=== PATIENT | female | born 1990 | race Caucasian/White ===

== ENCOUNTER 2018-01-22 21:22 | Emergency (ER) | payer BC ==
[2018-01-22] MEDS ORDERED: MAGNE/ALUM HYDROXD 30 ML UCUP ONE (22:02)
[2018-01-22] MEDS ORDERED: LIDOCAINE VISCOUS 2% SOLN 15 ML UDC ONE (22:03)
[2018-01-22 22:08] LABS: Urine Blood NEGATIVE (NEG); Urine Glucose NEGATIVE (NEG); Urine Protein NEGATIVE (NEG); Urine Specific Gravity >1.030 (1.005-1.030)
[2018-01-22 22:21] LABS: Absolute Lymphocytes (CBC) 2.6 K/uL (0.7-4.9); Absolute Monocytes 0.6 K/uL (0.1-1.3); Absolute Neutrophil 4.2 K/uL (1.8-8.0); Basophils % 1.2 % (0-1.3); Eosinophils % 2.6 % (0-4.4); Hematocrit 36.7 % (36.0-45.0); Lymphocytes % 33.6 % (15.3-44.8); MCH 30.5 pg (27.0-35.0); MCV 88.7 fL (80-100); MPV 7.9 fL (7.6-11.3); Monocytes % 8.3 % (3.3-12.3); RBC Red Blood Cell Count 4.14 M/uL (3.86-4.86)
[2018-01-22 23:05] LABS: ALT/SGPT 22 U/L (12-78); AST/SGOT 17 U/L (15-37); Albumin 3.6 g/dL (3.4-5.0); Alkaline Phosphatase 84 U/L (45-117); BUN Blood Urea Nitrogen 18 mg/dL (7-18); Bicarbonate 26 mmol/L (21-32); Bilirubin Direct < 0.1 mg/dL (0-0.2); Bilirubin Total 0.2 mg/dL (0.2-1.0); Glucose Level 96 mg/dL (74-106); Lipase 161 U/L (73-393); Potassium 3.6 mmol/L (3.5-5.1); Protein, Total 6.9 g/dL (6.4-8.2); Sodium Level 142 mmol/L (136-145)
[2018-01-22 23:18] LABS: Urine Bacteria <20 /HPF (<20); Urine Culture Reflex Order NOT NEEDED; Urine RBC <5 /HPF (NONE SEEN)
--- NOTE | 2018-01-22 23:57 | EDPHYS ---
Physician Documentation [facility] Name: Nicolle Nelson Age: 27 yrs Sex: Female : 1990 Arrival Date: 01/22/2018 Time: 21:23 Bed 28 Private MD: ED Physician Robert Adair HPI: 01/22 23:43 This 27 yrs old Female presents to ER via Ambulatory with complaints of gs Abdominal Pain, Back Pain. 23:43 The patient presents with pain that is acute. gs 23:43 The patient presents with abdominal pain in the epigastric area. Onset: The gs symptoms/episode began/occurred 2 day(s) ago. The symptoms radiate to right upper quadrant. Associated signs and symptoms: Pertinent positives: nausea. The symptoms are described as burning. Modifying factors: The symptoms are alleviated by nothing, the symptoms are aggravated by food. Severity of pain: At its worst the pain was moderate in the emergency department the pain has improved moderately. The patient has experienced similar episodes in the past, a few times. 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 - Social history:: Smoking status: Patient uses tobacco products, denies chronic smoking, but will smoke occasionally. - Ebola Screening: : Patient negative for fever greater than or equal to 101.5 degrees Fahrenheit, and additional compatible Ebola Virus Disease symptoms Patient denies exposure to infectious person Patient denies travel to an Ebola-affected area in the 21 days before illness onset No symptoms or risks identified at this time. ROS: 23:43 All other systems are negative. gs Exam: 23:43 Head/Face: Normocephalic, atraumatic. Eyes: Pupils equal round and reactive to light, gs extra-ocular motions intact. Lids and lashes normal. Conjunctiva and sclera are non-icteric and not injected. Cornea within normal limits. Periorbital areas with no swelling, redness, or edema. ENT: Nares patent. No nasal discharge, no septal abnormalities noted. Tympanic membranes are normal and external auditory canals are clear. Oropharynx with no redness, swelling, or masses, exudates, or evidence of obstruction, uvula midline. Mucous membranes moist. Neck: Trachea midline, no thyromegaly or masses palpated, and no cervical lymphadenopathy. Supple, full range of motion without nuchal rigidity, or vertebral point tenderness. No Meningismus. Chest/axilla: Normal chest wall appearance and motion. Nontender with no deformity. No lesions are appreciated. Cardiovascular: Regular rate and rhythm with a normal S1 and S2. No gallops, murmurs, or rubs. Normal PMI, no JVD. No pulse deficits. Respiratory: Lungs have equal breath sounds bilaterally, clear to auscultation and percussion. No rales, rhonchi or wheezes noted. No increased work of breathing, no retractions or nasal flaring. Back: No spinal tenderness. No costovertebral tenderness. Full range of motion. Skin: Warm, dry with normal turgor. Normal color with no rashes, no lesions, and no evidence of cellulitis. MS/ Extremity: Pulses equal, no cyanosis. Neurovascular intact. Full, normal range of motion. Neuro: Awake and alert, GCS 15, oriented to person, place, time, and situation. Cranial nerves II-XII grossly intact. Motor strength 5/5 in all extremities. Sensory grossly intact. Cerebellar exam normal. Normal gait. 23:43 Constitutional: The patient appears in no acute distress, alert, awake. 23:43 Abdomen/GI: Palpation: mild abdominal tenderness, in the epigastric area, rebound tenderness, is not appreciated, voluntary guarding, is not appreciated. Vital Signs: 21:32 BP 113 / 74; Pulse 88; Resp 17; Temp 98.3; Pulse Ox 98% on R/A; Weight 53.52 kg; Height aj 5 ft. 5 in. (165.10 cm); 22:30 BP 125 / 78; Pulse 78; Resp 18; Pulse Ox 100% ; mg2 23:30 BP 122 / 74; Pulse 78; Resp 18; Pulse Ox 100% on R/A; mg2 01/23 00:05 BP 118 / 78; Pulse 80; Resp 18; Pulse Ox 100% on R/A; mg2 01/22 21:32 Body Mass Index 19.64 (53.52 kg, 165.10 cm) MDM: 01/22 21:51 Patient medically screened. gs 23:43 Differential diagnosis: gastroesophageal reflux disease, non-specific abd pain, gs pancreatitis. Data reviewed: vital signs, nurses notes. Counseling: I had a detailed discussion with the patient and/or guardian regarding: the historical points, exam findings, and any diagnostic results supporting the discharge/admit diagnosis, lab results, the need for outpatient follow up. Response to treatment: the patient's symptoms have markedly improved after treatment, and as a result, I will discharge patient. 01/22 21:52 Order name: Basic Metabolic Panel; Complete Time: 23:42 01/22 21:52 Order name: CBC with Diff; Complete Time: 22:34 gs 01/22 21:52 Order name: Hepatic Function; Complete Time: 23:42 01/22 21:52 Order name: Lipase; Complete Time: 23:42 01/22 21:52 Order name: Urine Microscopic Only; Complete Time: 23:42 01/22 21:52 Order name: Urine Dipstick--Ancillary (enter results); Complete Time: 22:34 mw2 01/22 21:52 Order name: IV Saline Lock; Complete Time: 22:09 01/22 21:52 Order name: Labs collected and sent; Complete Time: 22:09 01/22 21:52 Order name: Urine Dipstick-Ancillary (obtain specimen); Complete Time: 22:09 01/22 21:52 Order name: Urine --Ancillary (enter results); Complete Time: 22:34 mw2 Administered Medications: 22:09 Drug: GI Cocktail without - (Maalox Suspension 30 ml, Lidocaine Liquid 2 % 15 mg2 ml) Route: PO; 23:30 Follow up: Response: No adverse reaction; Marked relief of symptoms mg2 Disposition: 01/22/18 23:57 Discharged to Home. Impression: Epigastric pain. - Condition is Stable. - Discharge Instructions: Abdominal Pain, Adult. - Prescriptions for omeprazole 20 mg Oral capsule,delayed release(DR/EC) - take 1 capsule by ORAL route once daily; 30 capsule. - Medication Reconciliation Form, Thank You Letter, Antibiotic Education, Prescription Opioid Use form. - Follow up: Private Physician; When: 2 - 3 days; Reason: Re-evaluation by your physician. Follow up: Alexi Barraza MD; When: 2 - 3 days; Reason: Re-evaluation by your physician. Signatures: Dispatcher [employer] Zandra Aparicio RN RN aj Robert Adair MD MD gs Homar Mack RN RN mg2 Corrections: (The following items were deleted from the chart) 01/23 00:15 01/22 23:57 01/22/2018 23:57 Discharged to Home. Impression: Epigastric pain. Condition mg2 is Stable. Forms are Medication Reconciliation Form, Thank You Letter, Antibiotic Education, Prescription Opioid Use. Follow up: Private Physician; When: 2 - 3 days; Reason: Re-evaluation by your physician. Follow up: Alexi Barraza; When: 2 - 3 days; Reason: Re-evaluation by your physician. gs
--- NOTE | 2018-01-22 23:57 | ER ---
Nurse's Notes [facility] Name: Nicolle Nelson Age: 27 yrs Sex: Female : 1990 Arrival Date: 01/22/2018 Time: 21:23 Bed 28 Private MD: Diagnosis: Epigastric pain Presentation: 01/22 21:31 Presenting complaint: Patient states: Epigastric pain for 2 days with nausea. Worse aj after eating. Transition of care: patient was not received from another setting of care. Onset of symptoms was January 20, 2018. Risk Assessment: Do you want to hurt yourself or someone else? Patient reports no desire to harm self or others. Initial Sepsis Screen: Does the patient meet any 2 criteria? No. Patient's initial sepsis screen is negative. Does the patient have a suspected source of infection? No. Patient's initial sepsis screen is negative. Care prior to arrival: None. 21:31 Method Of Arrival: Ambulatory aj 21:31 Acuity: PATSY 3 aj Triage Assessment: 21:32 General: Appears in no apparent distress. uncomfortable, Behavior is calm, cooperative, aj appropriate for age. Pain: Complains of pain in epigastric area and right upper quadrant. Neuro: Level of Consciousness is awake, alert, obeys commands, Oriented to person, place, time, situation, Appropriate for age. Respiratory: Airway is patent Respiratory effort is even, unlabored, Respiratory pattern is regular, symmetrical. GI: Reports upper abdominal pain, epigastric pain, nausea. Derm: Skin is intact, is healthy with good turgor, Skin is pink, warm \T\ dry. normal. 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 - Social history:: Smoking status: Patient uses tobacco products, denies chronic smoking, but will smoke occasionally. - Ebola Screening: : Patient negative for fever greater than or equal to 101.5 degrees Fahrenheit, and additional compatible Ebola Virus Disease symptoms Patient denies exposure to infectious person Patient denies travel to an Ebola-affected area in the 21 days before illness onset No symptoms or risks identified at this time. Screenin:37 Abuse screen: Denies threats or abuse. Denies injuries from another. Nutritional mg2 screening: No deficits noted. Tuberculosis screening: No symptoms or risk factors identified. Fall Risk None identified. Assessment: 21:41 General: Appears in no apparent distress. uncomfortable, slender, well groomed, well tl3 developed, well nourished, Behavior is calm, cooperative, appropriate for age. Pain: Complains of pain in epigastric area Pain radiates to right mid back. Neuro: Level of Consciousness is awake, alert, obeys commands, Oriented to person, place, time, situation, Appropriate for age. Cardiovascular: Patient's skin is warm and dry. Respiratory: Airway is patent Respiratory effort is even, unlabored, Respiratory pattern is regular, symmetrical. GI: Abdomen is flat, Bowel sounds present X 4 quads. Abd is soft. GI: Reports lower abdominal pain, since for the last two to three days pt has had epigastric pain, now it is starting to radiate to the right side of her back. No vomiting, diarrhea or fever. : No signs and/or symptoms were reported regarding the genitourinary system. Urine is clear. EENT: No signs and/or symptoms were reported regarding the EENT system. Derm: No signs and/or symptoms reported regarding the dermatologic system. Musculoskeletal: No signs and/or symptoms reported regarding the musculoskeletal system. 23:21 Reassessment: Patient appears in no apparent distress at this time. Patient and/or mg2 family updated on plan of care and expected duration. Pain level reassessed. Patient is alert, oriented x 3, equal unlabored respirations, skin warm/dry/pink. 01/23 00:05 Reassessment: Patient appears in no apparent distress at this time. Patient and/or mg2 family updated on plan of care and expected duration. Pain level reassessed. Patient is alert, oriented x 3, equal unlabored respirations, skin warm/dry/pink. Vital Signs: 01/22 21:32 BP 113 / 74; Pulse 88; Resp 17; Temp 98.3; Pulse Ox 98% on R/A; Weight 53.52 kg; Height aj 5 ft. 5 in. (165.10 cm); 22:30 BP 125 / 78; Pulse 78; Resp 18; Pulse Ox 100% ; mg2 23:30 BP 122 / 74; Pulse 78; Resp 18; Pulse Ox 100% on R/A; mg2 01/23 00:05 BP 118 / 78; Pulse 80; Resp 18; Pulse Ox 100% on R/A; mg2 01/22 21:32 Body Mass Index 19.64 (53.52 kg, 165.10 cm) ED Course: 01/22 21:23 Patient arrived in ED. am2 21:32 Triage completed. aj 21:32 Arm band placed on left wrist. Patient placed in an exam room. aj 21:36 Robert Adair MD is Attending Physician. 21:37 Homar Mack, RN is Primary Nurse. mg2 21:38 No provider procedures requiring assistance completed. mg2 21:41 Patient has correct armband on for positive identification. tl3 22:09 Inserted saline lock: 20 gauge in left antecubital area, using aseptic technique. Blood mg2 collected. 23:56 Alexi Barraza MD is Referral Physician. 01/23 00:10 IV discontinued, intact, bleeding controlled, No redness/swelling at site. Pressure mg2 dressing applied. Administered Medications: 01/22 22:09 Drug: GI Cocktail without - (Maalox Suspension 30 ml, Lidocaine Liquid 2 % 15 mg2 ml) Route: PO; 23:30 Follow up: Response: No adverse reaction; Marked relief of symptoms mg2 Outcome: 23:57 Discharge ordered by . 01/23 00:10 Discharged to home ambulatory, with family. mg2 Discharge instructions given to patient, family, Instructed on discharge instructions, follow up and referral plans. medication usage, Demonstrated understanding of instructions, follow-up care, medications. 00:10 Condition: stable mg2 00:15 Patient left the ED. mg2 Signatures: Zandra Peralta RN RN Zandra Kirk am2 Robert Adair MD MD Roxana Parson RN RN tl3 Homar Mack, SHU [place] mg2 Corrections: (The following items were deleted from the chart) 02:33 02:32 Condition: stable mg2 mg2
== END 2018-01-23 00:15 | disposition home or self-care (01) ==
LOC: ER 21:22
DX: R10.13 Epigastric pain (principal); Z72.0 Tobacco use
CPT/HCPCS: 36415; 80048; 80076; 81003; 81015; 81025; 83690; 85025; 99284

== ENCOUNTER 2018-02-01 17:55 | Emergency (ER) | payer BC ==
--- NOTE | 2018-02-01 19:31 | RAD REPORT ---
EXAM DESCRIPTION: US - BREAST/AXILLA, LIMITED - 02/01/2018 7:15 pm CLINICAL HISTORY: right anterior/lateral breast;Pain COMPARISON: No comparisons FINDINGS: A limited/targeted right breast sonogram was requested to the area of palpable abnormality . No mass, cyst or other abnormality is seen. IMPRESSION: Negative limited study.
--- NOTE | 2018-02-01 19:50 | ER ---
Nurse's Notes [facility] Name: Nicolle Nelson Age: 27 yrs Sex: Female : 1990 Arrival Date: 02/01/2018 Time: 17:56 Bed 7 Private MD: Diagnosis: Right Breast Pain Presentation: 02/01 18:00 Presenting complaint: Patient states: "I trying to get an X-Ray or something on my boob aj1 because its been hurting really bad for 2 weeks. Its bigger and its harder, it's abnormal." Reports pain to right breast. Denies redness, denies warmth to right breast. Denies fever. Denies drainage from breast. Transition of care: patient was not received from another setting of care. Onset of symptoms was January 2018. Risk Assessment: Do you want to hurt yourself or someone else? Patient reports no desire to harm self or others. Initial Sepsis Screen: Does the patient meet any 2 criteria? No. Patient's initial sepsis screen is negative. Does the patient have a suspected source of infection? No. Patient's initial sepsis screen is negative. Care prior to arrival: None. 18:00 Method Of Arrival: Ambulatory aj1 18:00 Acuity: PATSY 4 aj1 Triage Assessment: 18:03 Pain: Complains of pain in right breast Pain currently is 10 out of 10 on a pain scale. aj1 Neuro: Level of Consciousness is awake, alert, obeys commands. Cardiovascular: Patient's skin is warm and dry. Respiratory: Airway is patent Respiratory effort is even, unlabored, Respiratory pattern is regular, symmetrical. 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 - Social history:: Smoking status: Patient uses tobacco products, denies chronic smoking, but will smoke occasionally. - Ebola Screening: : Patient denies travel to an Ebola-affected area in the 21 days before illness onset. Screenin:21 Abuse screen: Denies threats or abuse. Denies injuries from another. Nutritional ao screening: No deficits noted. Tuberculosis screening: No symptoms or risk factors identified. Fall Risk None identified. Assessment: 19:19 General: Appears in no apparent distress. comfortable, Behavior is calm, cooperative, ao appropriate for age. Pain: Complains of pain in right breast. Neuro: Level of Consciousness is awake, alert, obeys commands, Oriented to person, place, time, situation, Appropriate for age Moves all extremities. Full function Speech is normal, Facial symmetry appears normal, Pupils are PERRLA. Cardiovascular: Heart tones S1 S2 Capillary refill < 3 seconds is sluggish Patient's skin is warm and dry. Respiratory: Airway is patent Respiratory effort is even, unlabored, Respiratory pattern is regular, symmetrical. GI: Abdomen is flat, non-distended. : No signs and/or symptoms were reported regarding the genitourinary system. EENT: No signs and/or symptoms were reported regarding the EENT system. Derm: Skin is intact, Skin is pink, warm \\T\\ dry. normal, Skin temperature is warm. Musculoskeletal: No signs and/or symptoms reported regarding the musculoskeletal system. 20:00 Reassessment: Patient appears in no apparent distress at this time. Patient is alert, aa1 oriented x 3, equal unlabored respirations, skin warm/dry/pink. Discussed d/c \\T\\ f/u instructions with pt; denies questions or concerns at this time. 20:01 Reassessment: DC instructions given to patient. patient agree to follow up with PCP. ao Vital Signs: 18:03 BP 129 / 89; Pulse 88; Resp 16; Temp 97.4; Pulse Ox 97% on R/A; Weight 53.07 kg (R); aj1 Height 5 ft. 6 in. (167.64 cm) (R); Pain 10/10; 19:19 BP 97 / 84; Pulse 75; Resp 16; Pulse Ox 98% on R/A; Pain 8/10; ao 18:03 Body Mass Index 18.88 (53.07 kg, 167.64 cm) aj1 ED Course: 17:56 Patient arrived in ED. as 18:03 Triage completed. aj1 18:03 Arm band placed on Patient placed in an exam room. aj1 18:08 Jonatan Tejeda PA is PHCP. jr8 18:08 Andreas Hickman MD is Attending Physician. jr8 18:25 Served as social service agency director during breast exam. aj1 19:03 Erasto Andrea, RN is Primary Nurse. ao 19:15 BREAST/AXILLA, LIMITED In Process Unspecified. EDMS 19:22 Patient has correct armband on for positive identification. Pulse ox on. NIBP on. ao 20:01 Patient did not have IV access during this emergency room visit. ao Administered Medications: No medications were administered Outcome: 19:50 Discharge ordered by . nura 20:00 Discharged to home ambulatory. ao 20:00 Condition: stable 20:00 Discharge instructions given to patient, Instructed on discharge instructions, follow up and referral plans. Demonstrated understanding of instructions, follow-up care, medications, Prescriptions given X 1. 20:01 Patient left the ED. ao Signatures: Dispatcher [employer] EDMS Alma Naranjo RN RN aj1 Yoly Schilling RN RN aa1 Olivia Richardson Josh, PA PA jr8 Erasto Andrea, RN RN ao
--- NOTE | 2018-02-01 19:50 | EDPHYS ---
Physician Documentation [facility] Unit Name: Nicolle Nelson Age: 27 yrs Sex: Female : 1990 Arrival Date: 02/01/2018 Time: 17:56 Bed 7 Private MD: ED Physician Andreas Hickman HPI: 02/01 19:46 This 27 yrs old Female presents to ER via Ambulatory with complaints of jr8 Breast Lump. 19:46 Onset: The symptoms/episode began/occurred gradually, 2 day(s) ago. Associated signs jr8 and symptoms: The patient has no apparent associated signs or symptoms. Modifying factors: The patient symptoms are alleviated by nothing, the patient symptoms are aggravated by nothing. The patient has not experienced similar symptoms in the past. The patient has not recently seen a physician. Patient stated that she has had right breast tenderness and fullness when she looks at it. Pain getting worse . 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 - Social history:: Smoking status: Patient uses tobacco products, denies chronic smoking, but will smoke occasionally. - Ebola Screening: : Patient denies travel to an Ebola-affected area in the 21 days before illness onset. ROS: 19:46 Eyes: Negative for injury, pain, redness, and discharge, ENT: Negative for injury, jr8 pain, and discharge, Neck: Negative for injury, pain, and swelling, Cardiovascular: Negative for chest pain, palpitations, and edema, Respiratory: Negative for shortness of breath, cough, wheezing, and pleuritic chest pain, Abdomen/GI: Negative for abdominal pain, nausea, vomiting, diarrhea, and constipation, Back: Negative for injury and pain, MS/Extremity: Negative for injury and deformity, Skin: Negative for injury, rash, and discoloration, Neuro: Negative for headache, weakness, numbness, tingling, and seizure. Exam: 19:46 Eyes: Pupils equal round and reactive to light, extra-ocular motions intact. Lids and jr8 lashes normal. Conjunctiva and sclera are non-icteric and not injected. Cornea within normal limits. Periorbital areas with no swelling, redness, or edema. ENT: Nares patent. No nasal discharge, no septal abnormalities noted. Tympanic membranes are normal and external auditory canals are clear. Oropharynx with no redness, swelling, or masses, exudates, or evidence of obstruction, uvula midline. Mucous membranes moist. Neck: Trachea midline, no thyromegaly or masses palpated, and no cervical lymphadenopathy. Supple, full range of motion without nuchal rigidity, or vertebral point tenderness. No Meningismus. Cardiovascular: Regular rate and rhythm with a normal S1 and S2. No gallops, murmurs, or rubs. Normal PMI, no JVD. No pulse deficits. Respiratory: Lungs have equal breath sounds bilaterally, clear to auscultation and percussion. No rales, rhonchi or wheezes noted. No increased work of breathing, no retractions or nasal flaring. Abdomen/GI: Soft, non-tender, with normal bowel sounds. No distension or tympany. No guarding or rebound. No evidence of tenderness throughout. Skin: Warm, dry with normal turgor. Normal color with no rashes, no lesions, and no evidence of cellulitis. MS/ Extremity: Pulses equal, no cyanosis. Neurovascular intact. Full, normal range of motion. Neuro: Awake and alert, GCS 15, oriented to person, place, time, and situation. 19:46 Chest/axilla: Inspection: normal, Palpation: is normal, Axilla: are normal, no abscess, no cellulitis, no mass, no palpable nodes, no rash, Breasts: tenderness, that is mild of the right breast, anterolateral aspect, Lymph nodes: lymphadenopathy is not appreciated. Vital Signs: 18:03 BP 129 / 89; Pulse 88; Resp 16; Temp 97.4; Pulse Ox 97% on R/A; Weight 53.07 kg (R); aj1 Height 5 ft. 6 in. (167.64 cm) (R); Pain 10/10; 19:19 BP 97 / 84; Pulse 75; Resp 16; Pulse Ox 98% on R/A; Pain 8/10; ao 18:03 Body Mass Index 18.88 (53.07 kg, 167.64 cm) aj1 MDM: 18:08 Patient medically screened. jr8 19:35 Data reviewed: vital signs, nurses notes, radiologic studies, ultrasound, and as a jr8 result, I will discharge patient. Data interpreted: Pulse oximetry: on room air is 98 %. Interpretation: normal. Counseling: I had a detailed discussion with the patient and/or guardian regarding: the historical points, exam findings, and any diagnostic results supporting the discharge/admit diagnosis, radiology results, the need for outpatient follow up, an OB/Gyne specialist, to return to the emergency department if symptoms worsen or persist or if there are any questions or concerns that arise at home. 19:35 ED course: Anterolateral fullness noted to right breast without any other palpable or jr8 visual abnormality. US without acute findings. Will start on antiinflammatory and have her see OB. 02/01 18:31 Order name: BREAST/AXILLA, LIMITED; Complete Time: 19:34 EDMS Administered Medications: No medications were administered Disposition: 02/02 02:02 Co-signature as Attending Physician, Andreas Hickman MD Available for consultation at ps1 all times. . Disposition: 02/01/18 19:50 Discharged to Home. Impression: Right Breast Pain. - Condition is Stable. - Discharge Instructions: Breast Tenderness, Breast Scan, Breast Ultrasound. - Prescriptions for Ibuprofen 800 mg Oral Tablet - take 1 tablet by ORAL route every 8 hours As needed take with food; 30 tablet. - Medication Reconciliation Form, Thank You Letter, Antibiotic Education, Prescription Opioid Use form. - Follow up: Private Physician; When: 2 - 3 days; Reason: Recheck today's complaints, Continuance of care, Re-evaluation by your physician. - Problem is new. - Symptoms have improved. Signatures: [facility] Alma Naranjo RN RN aj1 Jonatan Tejeda PA PA jr8 Erasto Andrea RN Andreas Bolanos MD MD ps1 Corrections: (The following items were deleted from the chart) 02/01 18:31 18:26 Extrmty Nonvasular Limited+US.RAD.BRZ ordered. [facility] EDNV 19:46 19:35 ED course: Anterolateral fullness noted to right breast without any other jr8 palpable or visual abnormality. US . jr8 19:59 18:26 Urine Test ordered. jr8 ao 20:00 18:26 Urine Dipstick-Ancillary ordered. jr8 ao 20:01 19:50 02/01/2018 19:50 Discharged to Home. Impression: Right Breast Pain. Condition is ao Stable. Forms are Medication Reconciliation Form, Thank You Letter, Antibiotic Education, Prescription Opioid Use. Follow up: Private Physician; When: 2 - 3 days; Reason: Recheck today's complaints, Continuance of care, Re-evaluation by your physician. Problem is new. Symptoms have improved. jr8
== END 2018-02-01 20:01 | disposition home or self-care (01) ==
LOC: ER 17:55
DX: N64.4 Mastodynia (principal); Z72.0 Tobacco use
CPT/HCPCS: 76642; 99283